=== PATIENT | male | born 1960 | race African-American/Black ===

== ENCOUNTER 2019-11-02 03:04 | Inpatient (IN) | payer MEDICAID, OTHER ==
[~2019-11-02] VITALS: Ht 188 cm; Wt 93.0 kg
[2019-11-02] MEDS ORDERED: KETOROLAC 30MG/ML VIAL IV STA (04:53)
[2019-11-02] MEDS ORDERED: SODIUM CHLORIDE 0.9% 1,000 ML IV ONE (04:53)
[2019-11-02] MEDS ORDERED: VANCOMYCIN 1 G PREMIX 200 ML IV ONE (05:00)
[2019-11-02] MEDS ORDERED: PIPERACILLIN/TAZ 3.375G PREMIX 50 ML IV ONE (05:00)
[2019-11-02 05:23] LABS: BASOPHILS % 0.5 % (0.0-2.0); EOSINOPHILS % 2.3 % (0.0-5.0); HEMATOCRIT. 37.9 % (42.0-52.0); HEMOGLOBIN. 13.1 g/dL (14.0-18.0); LYMPHOCYTES % 7.5 % (20.0-50.0); MEAN CORPUSCULAR HEMOGLOBIN 32.4 pg (28.0-32.0); MEAN CORPUSCULAR VOLUME 93.9 fL (80.0-94.0); MEAN PLATELET VOLUME 7.7 fl (7.4-10.4); MONOCYTES % 10.8 % (2.0-8.0); NEUTROPHILS % 78.9 % (40.0-76.0); PLATELET 287 x1000/uL (130-400); RED BLOOD CELL COUNT 4.03 mill/uL (4.7-6.1); RED CELL DISTRIBUTION WIDTH 14.3 % (11.6-14.6)
[2019-11-02 05:27] LABS: CHLORIDE 99 mEq/L (98-107)
[2019-11-02] MEDS ORDERED: IBUPROFEN 600MG TABLET PO PRN (06:45)
[2019-11-02] MEDS ORDERED: ACETAMINOPHEN 325MG TABLET PO PRN (09:30)
[2019-11-02] MEDS ORDERED: ONDANSETRON HCL 4MG/2ML INJ IV PRN (09:30)
[2019-11-02] MEDS ORDERED: PIPERACILLIN/TAZOBACTAM 3.375 G in DEXT 5% WATER 100 ML IV SCH (12:00)
[2019-11-02] MEDS ORDERED: IOHEXOL-300 100 ML BOTTLE ONE (12:02)
[2019-11-02] MEDS: HYDROCODONE/ACETAMINOPHEN 5/325MG TABLET PO PRN (12:43)
[2019-11-02] MEDS: MORPHINE SULFATE 2 MG/ML CPJ (NOT FOR IM USE) IV PRN ×2 (16:04→20:22)
[2019-11-02] MEDS ORDERED: VANCOMYCIN 1500MG in DEXTROSE 5% WATER 250ML IV SCH (18:00)
[2019-11-02 18:15] VITALS: BP 138/65
[2019-11-02 19:01] LABS: CLARITY URINE CLEAR (CLEAR); COLOR URINE YELLOW (YELLOW); KETONES URINE NEGATIVE (NEGATIVE); LEUKOCYTE ESTERASE URINE NEGATIVE (NEGATIVE); NITRITE URINE NEGATIVE (NEGATIVE); OCCULT BLOOD URINE 1+ (NEGATIVE); PH URINE 7.5 (4.5-8.0); PROTEIN URINE NEGATIVE (NEGATIVE); SPECIFIC GRAVITY URINE 1.018 (1.005-1.030)
[2019-11-02] MEDS ORDERED: LURA120T PO (19:15)
[2019-11-02 20:00] VITALS: BP_SYST 104; BP_SYST 125; BP_DIAS 46; BP_DIAS 70
[2019-11-02 20:02] LABS: METHADONE URINE SCREEN NEGATIVE (NEGATIVE)
[2019-11-02 20:03] LABS: *AMPHETAMINES SCREEN URINE NEGATIVE (NEGATIVE); *BARBITURATES SCREEN URINE NEGATIVE (NEGATIVE); *BENZODIAZEPINES SCREEN URINE NEGATIVE (NEGATIVE); *COCAINE SCREEN URINE PRESUMTIVE POSITIVE (NEGATIVE); CANNABINOID URINE SCREEN PRESUMTIVE POSITIVE (NEGATIVE); OPIATES URINE SCREEN PRESUMTIVE POSITIVE (NEGATIVE); PHENCYCLIDINE URINE SCREEN NEGATIVE (NEGATIVE)
[2019-11-02] MEDS: PIPERACILLIN/TAZOBACTAM 3.375 G in DEXT 5% WATER 100 ML IV SCH (22:13)
[2019-11-03] VITALS: BP 125/70
[2019-11-03] MEDS: MORPHINE SULFATE 2 MG/ML CPJ (NOT FOR IM USE) IV PRN ×3 (00:26→21:11)
[2019-11-03] MEDS: VANCOMYCIN 1500MG in DEXTROSE 5% WATER 250ML IV SCH ×3 (00:32→20:42)
[2019-11-03] MEDS: PIPERACILLIN/TAZOBACTAM 3.375 G in DEXT 5% WATER 100 ML IV SCH ×4 (00:32→17:30)
[2019-11-03 04:00] VITALS: BP 124/62
[2019-11-03 07:21] LABS: CHLORIDE 101 mEq/L (98-107)
[2019-11-03 07:22] LABS: BASOPHILS % 0.6 % (0.0-2.0); EOSINOPHILS % 1.8 % (0.0-5.0); HEMATOCRIT. 35.9 % (42.0-52.0); HEMOGLOBIN. 12.2 g/dL (14.0-18.0); LYMPHOCYTES % 9.6 % (20.0-50.0); MEAN CORPUSCULAR HEMOGLOBIN 31.9 pg (28.0-32.0); MEAN CORPUSCULAR VOLUME 93.7 fL (80.0-94.0); MEAN PLATELET VOLUME 8.2 fl (7.4-10.4); MONOCYTES % 12.2 % (2.0-8.0); NEUTROPHILS % 75.8 % (40.0-76.0); PLATELET 319 x1000/uL (130-400); RED BLOOD CELL COUNT 3.83 mill/uL (4.7-6.1); RED CELL DISTRIBUTION WIDTH 14.1 % (11.6-14.6)
[2019-11-03 08:00] VITALS: BP 130/52
[2019-11-03] MEDS ORDERED: TETANUS AND DIPHTHERIA TOX/PF 0.5ML SYR (ADULT) IM ONE (09:00)
[2019-11-03 12:00] VITALS: BP 110/58
[2019-11-03 16:00] VITALS: BP 118/55
[2019-11-03] MEDS: HYDROCODONE/ACETAMINOPHEN 5/325MG TABLET PO PRN ×2 (16:09→23:40)
[2019-11-03 20:00] VITALS: BP 130/64
[2019-11-03] MEDS: SODIUM HYPOCHLORITE 0.125% 473ML SOLUTION TOP SCH (21:58)
[2019-11-04] VITALS: BP 119/68
[2019-11-04] MEDS: MORPHINE SULFATE 2 MG/ML CPJ (NOT FOR IM USE) IV PRN ×3 (02:29→20:03)
[2019-11-04 04:00] VITALS: BP 117/64
[2019-11-04] MEDS: HYDROCODONE/ACETAMINOPHEN 5/325MG TABLET PO PRN (07:21)
[2019-11-04 07:51] LABS: BASOPHILS % 0.4 % (0.0-2.0); EOSINOPHILS % 2.3 % (0.0-5.0); HEMATOCRIT. 37.7 % (42.0-52.0); HEMOGLOBIN. 12.9 g/dL (14.0-18.0); LYMPHOCYTES % 15.7 % (20.0-50.0); MEAN CORPUSCULAR HEMOGLOBIN 32.3 pg (28.0-32.0); MEAN CORPUSCULAR VOLUME 94.8 fL (80.0-94.0); MEAN PLATELET VOLUME 7.9 fl (7.4-10.4); MONOCYTES % 14.1 % (2.0-8.0); NEUTROPHILS % 67.5 % (40.0-76.0); PLATELET 357 x1000/uL (130-400); RED BLOOD CELL COUNT 3.98 mill/uL (4.7-6.1); RED CELL DISTRIBUTION WIDTH 14.3 % (11.6-14.6)
[2019-11-04 08:00] VITALS: BP 114/60
[2019-11-04 08:06] LABS: CHLORIDE 104 mEq/L (98-107)
[2019-11-04] MEDS: VANCOMYCIN 1500MG in DEXTROSE 5% WATER 250ML IV SCH (09:03)
[2019-11-04] MEDS: SODIUM HYPOCHLORITE 0.125% 473ML SOLUTION TOP SCH (09:03)
[2019-11-04 12:00] VITALS: BP 113/85
[2019-11-04 13:10] LABS: HIV SCREEN 4G Non Reactive (Non Reactive)
[2019-11-04 16:00] VITALS: BP 116/62
[2019-11-04] MEDS: VANCOMYCIN 1 G PREMIX 200 ML IV SCH (17:31)
[2019-11-04 20:00] VITALS: BP 108/55
[2019-11-05] VITALS: BP 98/58
[2019-11-05] MEDS: VANCOMYCIN 1 G PREMIX 200 ML IV SCH ×3 (01:11→17:30)
[2019-11-05] MEDS: HYDROCODONE/ACETAMINOPHEN 5/325MG TABLET PO PRN ×3 (01:46→20:26)
[2019-11-05 04:00] VITALS: BP 132/75
[2019-11-05] MEDS: MORPHINE SULFATE 2 MG/ML CPJ (NOT FOR IM USE) IV PRN (06:44)
[2019-11-05 07:08] LABS: BASOPHILS % 0.4 % (0.0-2.0); EOSINOPHILS % 2.4 % (0.0-5.0); HEMATOCRIT. 37.8 % (42.0-52.0); HEMOGLOBIN. 13.2 g/dL (14.0-18.0); LYMPHOCYTES % 18.1 % (20.0-50.0); MEAN CORPUSCULAR HEMOGLOBIN 32.7 pg (28.0-32.0); MEAN CORPUSCULAR VOLUME 93.5 fL (80.0-94.0); MEAN PLATELET VOLUME 7.6 fl (7.4-10.4); MONOCYTES % 11.6 % (2.0-8.0); NEUTROPHILS % 67.5 % (40.0-76.0); PLATELET 399 x1000/uL (130-400); RED BLOOD CELL COUNT 4.04 mill/uL (4.7-6.1); RED CELL DISTRIBUTION WIDTH 14.2 % (11.6-14.6)
[2019-11-05 07:41] LABS: CHLORIDE 103 mEq/L (98-107)
[2019-11-05 08:00] VITALS: BP 102/61
[2019-11-05] MEDS ORDERED: LIDOCAINE HCL 1% 20ML VIAL (Pyxis) INJ ONE (08:24)
[2019-11-05] MEDS ORDERED: NORMAL SALINE 0.9% 10 ML SYR ONE (08:24)
[2019-11-05] MEDS ORDERED: SKIN ADHESIVE 0.7 GM EA TOP ONE (08:24)
[2019-11-05] MEDS ORDERED: BUPIVACAINE HCL/PF 0.5% (5MG/ML) 10ML ONE (08:24)
[2019-11-05] MEDS ORDERED: BACITRACIN 50,000 UNITS/VIAL ONE (08:25)
[2019-11-05] MEDS: SODIUM HYPOCHLORITE 0.125% 473ML SOLUTION TOP SCH (09:00)
[2019-11-05] MEDS ORDERED: ONDANSETRON HCL 4MG/2ML INJ IV PRN (09:15)
[2019-11-05] MEDS ORDERED: MEPERIDINE HCL/PF 25MG/ML CPJ IV PRN (09:15)
[2019-11-05] MEDS ORDERED: SODIUM CHLORIDE 0.9% 1,000 ML IV ONE (09:15)
[2019-11-05] MEDS ORDERED: MORPHINE SULFATE 2 MG/ML CPJ (NOT FOR IM USE) IV PRN (09:15)
[2019-11-05] MEDS ORDERED: VANCOMYCIN HCL 1 GM/VIAL ONE (09:15)
[2019-11-05] MEDS ORDERED: NEOSTIGMINE METHYLSULFATE 1MG/ML 10 ML VIAL ONE (09:24)
[2019-11-05] MEDS ORDERED: FENTANYL CITRATE/PF 50MCG/ML 2ML VIAL ONE ×2 (09:24→09:53)
[2019-11-05] MEDS ORDERED: ROCURONIUM BROMIDE 10MG/ML VIAL 5ML IV ONE (09:24)
[2019-11-05] MEDS ORDERED: PHENYLEPHRINE HCL 10 MG/ML 1ML (IV VIAL) IV ONE (09:25)
[2019-11-05] MEDS ORDERED: ONDANSETRON HCL 4MG/2ML INJ ONE (09:25)
[2019-11-05] MEDS ORDERED: GLYCOPYRROLATE 0.2 MG/ML 2ML VIAL ONE (09:25)
[2019-11-05] MEDS ORDERED: SUCCINYLCHOLINE CHLORIDE 200MG/10ML IV ONE (09:25)
[2019-11-05] MEDS ORDERED: PROPOFOL 200MG/20ML VIAL IV ONE (09:25)
[2019-11-05] MEDS ORDERED: EPHEDRINE SULFATE 50MG/ML VIAL ONE (09:25)
[2019-11-05] MEDS ORDERED: SODIUM CHLORIDE 0.9% 10ML VIAL ONE (09:25)
[2019-11-05] MEDS ORDERED: MIDAZOLAM HCL 2 MG/2 ML VIAL ONE (09:25)
[2019-11-05] MEDS ORDERED: METOCLOPRAMIDE HCL 10MG/2ML VIAL ONE (09:25)
[2019-11-05] MEDS: HYDROMORPHONE HCL/PF 2MG/ML CPJ IV PRN ×3 (10:40→11:14)
[2019-11-05 12:00] VITALS: BP 100/56
[2019-11-05 16:00] VITALS: BP 103/46
[2019-11-05 20:00] VITALS: BP 107/53
[2019-11-06] VITALS: BP 101/58
[2019-11-06] MEDS: VANCOMYCIN 1 G PREMIX 200 ML IV SCH ×2 (00:29→08:18)
[2019-11-06 04:00] VITALS: BP 108/55
[2019-11-06] MEDS ORDERED: LACTULOSE 20G/30ML UDC PO PRN (06:30)
[2019-11-06] MEDS ORDERED: DOCUSATE SODIUM 250MG CAPSULE PO PRN (06:30)
[2019-11-06 06:34] LABS: BASOPHILS % 0.6 % (0.0-2.0); EOSINOPHILS % 1.8 % (0.0-5.0); HEMATOCRIT. 39.8 % (42.0-52.0); HEMOGLOBIN. 13.4 g/dL (14.0-18.0); LYMPHOCYTES % 19.2 % (20.0-50.0); MEAN CORPUSCULAR HEMOGLOBIN 31.7 pg (28.0-32.0); MEAN CORPUSCULAR VOLUME 94.3 fL (80.0-94.0); MEAN PLATELET VOLUME 7.9 fl (7.4-10.4); MONOCYTES % 11.6 % (2.0-8.0); NEUTROPHILS % 66.8 % (40.0-76.0); PLATELET 423 x1000/uL (130-400); RED BLOOD CELL COUNT 4.22 mill/uL (4.7-6.1); RED CELL DISTRIBUTION WIDTH 14.1 % (11.6-14.6)
[2019-11-06 07:03] LABS: CHLORIDE 104 mEq/L (98-107)
[2019-11-06 08:00] VITALS: BP 111/74
[2019-11-06] MEDS: MORPHINE SULFATE 2 MG/ML CPJ (NOT FOR IM USE) IV PRN ×3 (08:18→20:26)
[2019-11-06] MEDS: SODIUM HYPOCHLORITE 0.125% 473ML SOLUTION TOP SCH (09:00)
[2019-11-06] MEDS: HYDROCODONE/ACETAMINOPHEN 5/325MG TABLET PO PRN (10:49)
[2019-11-06 16:00] VITALS: BP 108/61
[2019-11-06 20:00] VITALS: BP 109/52
[2019-11-06] MEDS: VANCOMYCIN 1500MG in DEXTROSE 5% WATER 250ML IV SCH (22:42)
[2019-11-07] VITALS: BP 110/60
[2019-11-07 04:00] VITALS: BP 110/98
[2019-11-07 06:32] LABS: CHLORIDE 106 mEq/L (98-107)
[2019-11-07 07:06] LABS: BASOPHILS % 0.7 % (0.0-2.0); HEMATOCRIT. 37.2 % (42.0-52.0); LYMPHOCYTES % 20.2 % (20.0-50.0); MEAN CORPUSCULAR HEMOGLOBIN 32.7 pg (28.0-32.0); MEAN CORPUSCULAR VOLUME 93.2 fL (80.0-94.0); MEAN PLATELET VOLUME 7.3 fl (7.4-10.4); MONOCYTES % 10.3 % (2.0-8.0); NEUTROPHILS % 66.8 % (40.0-76.0); PLATELET 432 x1000/uL (130-400); RED BLOOD CELL COUNT 3.99 mill/uL (4.7-6.1); RED CELL DISTRIBUTION WIDTH 13.9 % (11.6-14.6)
[2019-11-07 08:00] VITALS: BP 110/66
[2019-11-07] MEDS: SODIUM HYPOCHLORITE 0.125% 473ML SOLUTION TOP SCH (09:00)
[2019-11-07] MEDS: VANCOMYCIN 1500MG in DEXTROSE 5% WATER 250ML IV SCH ×2 (10:11→19:49)
[2019-11-07] MEDS ORDERED: MORPHINE SULFATE 2 MG/ML CPJ (NOT FOR IM USE) IV NR (10:30)
[2019-11-07 12:00] VITALS: BP 112/70
[2019-11-07 16:13] VITALS: BP 110/67
[2019-11-07] MEDS: HYDROCODONE/ACETAMINOPHEN 10/325MG TABLET PO PRN (19:49)
[2019-11-07 20:00] VITALS: BP 116/74
[2019-11-08] VITALS: BP 101/53
[2019-11-08 04:00] VITALS: BP 106/52
[2019-11-08 08:57] LABS: CHLORIDE 101 mEq/L (98-107)
[2019-11-08] MEDS: SODIUM HYPOCHLORITE 0.125% 473ML SOLUTION TOP SCH (09:00)
[2019-11-08] MEDS: HYDROCODONE/ACETAMINOPHEN 10/325MG TABLET PO PRN ×2 (09:24→19:41)
[2019-11-08 09:29] VITALS: BP 99/61
[2019-11-08] MEDS: VANCOMYCIN 1500MG in DEXTROSE 5% WATER 250ML IV SCH ×2 (10:18→20:27)
[2019-11-08 11:42] VITALS: BP 120/70
[2019-11-08 16:00] VITALS: BP 100/58
[2019-11-08 20:00] VITALS: BP 103/68
[2019-11-09] VITALS: BP 107/65
[2019-11-09 04:00] VITALS: BP 107/65
[2019-11-09 08:00] VITALS: BP 96/62
[2019-11-09] MEDS: VANCOMYCIN 1500MG in DEXTROSE 5% WATER 250ML IV SCH ×2 (08:47→21:16)
[2019-11-09] MEDS: HYDROCODONE/ACETAMINOPHEN 10/325MG TABLET PO PRN ×2 (08:51→18:03)
[2019-11-09] MEDS: SODIUM HYPOCHLORITE 0.125% 473ML SOLUTION TOP SCH (09:00)
[2019-11-09 12:00] VITALS: BP 94/51
[2019-11-09 16:00] VITALS: BP 102/64
[2019-11-09 20:00] VITALS: BP 123/67
[2019-11-10] VITALS: BP 101/52
[2019-11-10] MEDS: HYDROCODONE/ACETAMINOPHEN 10/325MG TABLET PO PRN ×2 (02:30→10:26)
[2019-11-10 04:00] VITALS: BP 113/64
[2019-11-10 08:00] VITALS: BP 116/57
[2019-11-10] MEDS: SODIUM HYPOCHLORITE 0.125% 473ML SOLUTION TOP SCH (09:42)
[2019-11-10] MEDS: VANCOMYCIN 1500MG in DEXTROSE 5% WATER 250ML IV SCH ×2 (09:42→22:54)
[2019-11-10 12:00] VITALS: BP 98/58
[2019-11-10] MEDS ORDERED: METF-815 MT (12:07)
[2019-11-10 16:00] VITALS: BP 109/58
[2019-11-10 20:00] VITALS: BP 92/53
[2019-11-11] VITALS: BP 105/60
[2019-11-11] MEDS: HYDROCODONE/ACETAMINOPHEN 10/325MG TABLET PO PRN ×3 (01:35→22:35)
[2019-11-11 04:00] VITALS: BP 128/68
[2019-11-11 08:00] VITALS: BP 109/67
[2019-11-11] MEDS: VANCOMYCIN 1500MG in DEXTROSE 5% WATER 250ML IV SCH ×2 (10:44→22:31)
[2019-11-11 12:00] VITALS: BP 114/69
[2019-11-11 16:00] VITALS: BP 130/71
[2019-11-11] MEDS: METFORMIN HCL 500MG TABLET PO SCH (17:05)
[2019-11-11 20:00] VITALS: BP 110/65
[2019-11-12] VITALS: BP 116/71
[2019-11-12 04:00] VITALS: BP 115/66
[2019-11-12] MEDS: METFORMIN HCL 500MG TABLET PO SCH ×2 (06:19→17:10)
[2019-11-12 08:00] VITALS: BP 128/48
[2019-11-12] MEDS: HYDROCODONE/ACETAMINOPHEN 10/325MG TABLET PO PRN ×2 (08:51→22:10)
[2019-11-12] MEDS: VANCOMYCIN 1500MG in DEXTROSE 5% WATER 250ML IV SCH ×2 (08:51→21:43)
[2019-11-12 10:53] LABS: CHLORIDE 103 mEq/L (98-107)
[2019-11-12 12:00] VITALS: BP 115/66
[2019-11-12 16:00] VITALS: BP 110/65
[2019-11-12 20:00] VITALS: BP 111/63
[2019-11-13] VITALS: BP 120/67
[2019-11-13 04:00] VITALS: BP 109/71
[2019-11-13 08:00] VITALS: BP 109/70
[2019-11-13] MEDS: METFORMIN HCL 500MG TABLET PO SCH ×2 (08:22→16:52)
[2019-11-13] MEDS: HYDROCODONE/ACETAMINOPHEN 10/325MG TABLET PO PRN (08:32)
[2019-11-13] MEDS: VANCOMYCIN 1500MG in DEXTROSE 5% WATER 250ML IV SCH ×2 (09:52→22:40)
[2019-11-13 12:00] VITALS: BP 109/69
[2019-11-13 16:00] VITALS: BP 104/61
[2019-11-13 20:00] VITALS: BP 105/60
[2019-11-14] VITALS: BP 109/72
[2019-11-14 04:00] VITALS: BP 130/66
[2019-11-14 08:00] VITALS: BP 110/53
[2019-11-14] MEDS: METFORMIN HCL 500MG TABLET PO SCH ×2 (08:50→17:06)
[2019-11-14] MEDS: HYDROCODONE/ACETAMINOPHEN 10/325MG TABLET PO PRN (09:34)
[2019-11-14] MEDS ORDERED: VANCOMYCIN 1500MG in DEXTROSE 5% WATER 250ML IV SCH (10:00)
[2019-11-14 12:00] VITALS: BP 121/74
[2019-11-14 16:00] VITALS: BP 121/75
[2019-11-14 20:00] VITALS: BP 106/72
[2019-11-14] MEDS: VANCOMYCIN 1500MG in DEXTROSE 5% WATER 250ML IV SCH (20:28)
[2019-11-15] VITALS: BP 108/64
[2019-11-15 04:00] VITALS: BP 137/73
[2019-11-15 07:35] LABS: CHLORIDE 108 mEq/L (98-107)
[2019-11-15 08:00] VITALS: BP 130/80
[2019-11-15] MEDS: METFORMIN HCL 500MG TABLET PO SCH ×2 (08:25→17:50)
[2019-11-15] MEDS: HYDROCODONE/ACETAMINOPHEN 10/325MG TABLET PO PRN (08:39)
[2019-11-15] MEDS: VANCOMYCIN 1500MG in DEXTROSE 5% WATER 250ML IV SCH (10:25)
[2019-11-15 12:00] VITALS: BP 118/75
[2019-11-15 16:00] VITALS: BP 142/74
[2019-11-15 17:27] VITALS: BP 142/74
== END 2019-11-15 18:12 | disposition home health service (06) | DRG 720 ==
LOC: ER 03:04 → 6EST 06:41 → ENRESERV 15:35
PROVIDERS: ADMIT Internal Medicine; ATTEND Internal Medicine
PROC: 0JB70ZZ Excision of Back Subcutaneous Tissue and Fascia, Open Approach (ICD-10-PCS; principal; 2019-11-05)
DX: A41.02 Sepsis due to Methicillin resistant Staphylococcus aureus (principal); E44.0 Moderate protein-calorie malnutrition; L02.31 Cutaneous abscess of buttock; L03.317 Cellulitis of buttock; L02.33 Carbuncle of buttock; J45.909 Unspecified asthma, uncomplicated; Z20.828 Contact with and (suspected) exposure to other viral communicable diseases; Z60.2 Problems related to living alone; F14.90 Cocaine use, unspecified, uncomplicated; F12.90 Cannabis use, unspecified, uncomplicated; F17.210 Nicotine dependence, cigarettes, uncomplicated; Z59.0 Homelessness; Z79.899 Other long term (current) drug therapy; Z71.6 Tobacco abuse counseling; Z68.26 Body mass index [BMI] 26.0-26.9, adult; Z71.51 Drug abuse counseling and surveillance of drug abuser
CPT/HCPCS: 36415; 74177; 80048; 80053; 80202; 80305; 81003; 82962; 83036; 85025; 87070; 87075; 87077; 87389; 88304; 88312; 90714; 93005; 93306; 99285; J0330; J1170; J1885; J2250; J2270; J2370; J2405; J2543; J2704; J2710; J2765; J3010; J3370; J3490; J7030; J7060; Q9967; U0003-CS

== ENCOUNTER 2022-05-29 16:21 | Emergency (ER) | payer MEDICAID, OTHER ==
[~2022-05-29] VITALS: Ht 185.4 cm; Wt 90.0 kg
[~2022-05-29 16:21] MED LIST: LURA120T PO; METF-873 MT
[2022-05-29 16:30] VITALS: BP 144/97
[2022-05-29] MEDS ORDERED: AMPICILLIN SOD/SULBACTAM NA 3 G in SODIUM CHLORIDE 0.9% 100 ML IV SCH (18:30)
[2022-05-29] MEDS ORDERED: DEXAMETHASONE 4MG/ML 1ML VIAL IM ONE (18:30)
[2022-05-29 21:06] LABS: BASOPHILS % 0.8 % (0.0-2.0); EOSINOPHILS % 0.8 % (0.0-5.0); HEMATOCRIT. 41.3 % (42.0-52.0); LYMPHOCYTES % 16.1 % (20.0-50.0); MEAN CORPUSCULAR HEMOGLOBIN 31.3 pg (28.0-32.0); MEAN CORPUSCULAR VOLUME 92.4 fL (80.0-94.0); MEAN PLATELET VOLUME 7.9 fl (7.4-10.4); MONOCYTES % 9.2 % (2.0-8.0); NEUTROPHILS % 73.1 % (40.0-76.0); PLATELET 371 x1000/uL (130-400); RED BLOOD CELL COUNT 4.47 mill/uL (4.7-6.1); RED CELL DISTRIBUTION WIDTH 14.8 % (11.6-14.6)
[2022-05-29 21:11] LABS: CHLORIDE 101 mEq/L (98-107)
[2022-05-29] MEDS ORDERED: AMOX1TAB16 MT (22:33)
[2022-05-29] MEDS ORDERED: IOHEXOL-300 100 ML BOTTLE ONE (23:09)
== END 2022-05-29 22:56 | disposition home or self-care (01) ==
LOC: ER 16:50
DX: I88.9 Nonspecific lymphadenitis, unspecified (principal)
CPT/HCPCS: 36415; 70491; 80053; 85025; 96365; 96372; 99285; J0295; J1100; J7050; Q9967